=== PATIENT | female | born 1940 | race Caucasian/White ===

== ENCOUNTER 2016-07-15 11:22 | Emergency (ER) | payer OTHER, BC ==
[~2016-07-15] VITALS: Ht 167.6 cm; Wt 55.0 kg
[~2016-07-15 11:22] MED LIST: ALBU8.5H3 INH; AZIT250T94 PO; CEPH-443 PO; D-ME473S2 PO; LEVO50TA71 PO; LEVO750T25 PO; MECL25TA2 PO; NAPR-685 PO; ONDA4TAB8 PO; RANI150T9 PO; SIMV20TA PO
[2016-07-15 11:37] VITALS: Ht 167.6 cm; Wt 55.0 kg
[2016-07-15] MEDS ORDERED: morphine 2 MG INJ IV STA (11:58)
[2016-07-15] MEDS ORDERED: SOD CHLORIDE 0.9% 500 ML IV STA (11:58)
[2016-07-15] MEDS ORDERED: ONDANSETRON 4 MG INJ IV STA (11:58)
[2016-07-15] MEDS ORDERED: KETOROLAC 15 MG INJ IV STA (12:19)
[2016-07-15 12:24] LABS: ADD SCAN DIFF NO
[2016-07-15 12:31] LABS: BASOPHILS % 0.3 % (0.0-2.0); EOSINOPHILS # 0.1 10^3/ul (0.0-0.5); HEMOGLOBIN 12.7 g/dl (12.0-16.0); LYMPHOCYTES # 0.8 10^3/ul (0.8-2.9); LYMPHOCYTES % 13.6 % (15.0-51.0); MEAN CORPUSCULAR HEMOGLOBIN 31.4 pg (29.0-33.0); MEAN CORPUSCULAR HGB CONC 34.3 g/dl (32.0-37.0); MEAN CORPUSCULAR VOLUME 91.4 fl (82.0-101.0); MEAN PLATELET VOLUME 11.8 fl (7.4-10.4); MONOCYTE # 0.5 10^3/ul (0.3-0.9); MONOCYTES % 7.6 % (0.0-11.0); NEUTROPHIL # 4.5 10^3/ul (1.6-7.5); NEUTROPHILS % 76.3 % (39.0-77.0); PLATELET COUNT 127 10^3/UL (140-415); RED BLOOD COUNT 4.05 10^6/ul (4.20-5.40); RED CELL DISTRIBUTION WIDTH 14.1 % (11.5-14.5); WHITE BLOOD COUNT 5.9 10^3/ul (4.8-10.8)
[2016-07-15 12:38] LABS: ADD UMIC NO; UR BILIRUBIN (Dip) NEGATIVE (NEGATIVE); UR BLOOD (Dip) NEGATIVE (NEGATIVE); UR CLARITY CLEAR (CLEAR); UR COLOR LT. YELLOW (YELLOW); UR GLUCOSE (Dip) NEGATIVE (NEGATIVE); UR KETONES (Dip) NEGATIVE (NEGATIVE); UR LEUKOCYTE ESTERASE (Dip) NEGATIVE (NEGATIVE); UR NITRITE (Dip) NEGATIVE (NEGATIVE); UR TOTAL PROTEIN (Dip) NEGATIVE (NEGATIVE); UR UROBILINOGEN (Dip) 0.2 E.U./dL (0.1-1.0)
[2016-07-15 12:45] LABS: INR 0.96; PROTIME 12.8 Sec (12.2-14.2)
[2016-07-15 12:46] LABS: ALBUMIN 3.7 g/dl (3.3-4.9); ALBUMIN/GLOBULIN RATIO 1.32; CALCIUM 8.3 mg/dl (8.4-10.2); CREATININE 0.57 mg/dl (0.44-1.00); PARTIAL THROMBOPLASTIN TIME 30.3 Sec (25.0-35.0); TOTAL PROTEIN 6.5 g/dl (6.1-8.1)
--- NOTE | 2016-07-15 12:46 | ERD ---
ER Documentation Chief Complaint Date/Time DATE: 07/15/16 TIME: 12:44 Chief Complaint DIARRHEA AND VOMITTING SINCE LAST NIGHT HPI 76-year-old female prior history of ovarian cyst surgery who presents emergency room with abdominal pain and diarrhea that started last night. She describes 9 out of 10 cramping abdominal pain with associated loose watery stools, no fever no blood no nausea no vomiting. No chest pain or shortness of breath. ROS All systems reviewed and are negative except as per history of present illness. Medications Home Meds Reported Medications Levothyroxine Sodium* (Levoxyl*) 50 Mcg Tablet, 50 MCG PO BEFORE BREAKFAST, #30 TAB 04/20/15 Simvastatin* (Zocor*) 20 Mg Tablet, 20 MG PO QHS, #30 TAB 04/20/15 Discontinued Reported Medications Naproxen* (Naproxen*) 375 Mg Tablet, 375 MG PO BID Y for PAIN AND/OR INFLAMMATION, TAB 04/20/15 Discontinued Scripts Cephalexin* (Keflex*) 500 Mg Capsule, 500 MG PO BID for 10 Days, CAP Prov:ANAYELI BAEZA PA-C 02/29/16 Azithromycin* (Zithromax*) 250 Mg Tablet, 250 MG PO .ZPACK DIRECTED, #6 TAB TAKE 500 MG (2 TABS) THE FIRST DAY THEN 250 MG (1 TAB) DAYS 2-5 Prov:ANAYELI BAEZA PA-C 02/29/16 Dextromethorphan Hb-Promethazine Hcl* (Promethazine DM* Syrup) 473 Ml Syrup, 5 ML PO Q6 Y for COUGH, #5 ML Prov:ANAYELI BAEZA PA-C 02/29/16 Albuterol Sulfate* (Proair HFA*) 8.5 Gm Hfa.aer.ad, 2 PUFF INH Q6H Y for COUGH, #1 INHALER Prov:DIONTE JOAQUIN MD 10/15/15 Meclizine Hcl* (Antivert*) 25 Mg Tablet, 25 MG PO Q6H Y for DIZZINESS, #20 TAB Prov:DIONTE JOAQUIN MD 10/15/15 Ranitidine Hcl* (Zantac*) 150 Mg Tablet, 150 MG PO BID Y for GASTROINTESTINAL UPSET, #30 TAB Prov:RUBÉN HIDALGO 04/20/15 Ondansetron Hcl* (Zofran*) 4 Mg Tablet, 4 MG PO Q8H Y for NAUSEA AND/OR VOMITING , #30 TAB Prov:RUBÉN HIDALGO 04/20/15 Meclizine Hcl* (Antivert*) 25 Mg Tablet, 25 MG PO Q6H Y for vertigo, #20 TAB Prov:RUBÉN HIDALGO 04/20/15 Allergies Allergies: Coded Allergies: No Known Allergy (Unverified , 04/20/15) PMhx/Soc History of Surgery: Yes (thyroidectomy ) Anesthesia Reaction: No Hx Neurological Disorder: No Hx Respiratory Disorders: No Hx Cardiac Disorders: Yes (hypotension/hypertension) Hx Psychiatric Problems: No Hx Miscellaneous Medical Probl: Yes Hx Alcohol Use: No Hx Substance Use: No Hx Tobacco Use: No FmHx Family History: No diabetes Physical Exam Vitals Vital Signs Date Time Temp Pulse Resp B/P Pulse Ox O2 Delivery O2 Flow Rate FiO2 07/15/16 13:48 77 18 124/69 100 Room Air 07/15/16 12:56 71 137/68 Room Air 07/15/16 12:14 98 131/67 97 Room Air 07/15/16 11:37 98.2 81 19 119/64 96 Physical Exam General: Well developed, well nourished, no acute distress, drinking soda Head: Normocephalic, atraumatic. Eyes: Pupils equally reactive, EOM intact ENT: Moist mucous membranes Neck: Supple, no lymphadenopathy Respiratory: Lungs clear bilaterally, no distress Cardiovascular: RRR, no murmurs, rubs, or gallops Abdominal: Soft, mild diffuse tenderness without rebound or guarding : Deferred MSK: No edema, no unilateral swelling, 5/5 strength Neurologic: Alert and oriented, moving all extremities, normal speech, no focal weakness, no cerebellar signs Skin: No rash Psych: Normal mood Result Diagram: 07/15/16 1210 07/15/16 1210 Results 24 hrs Laboratory Tests Test 07/15/16 12:10 White Blood Count 5.910^3/ul Red Blood Count 4.0510^6/ul Hemoglobin 12.7g/dl Hematocrit 37.0% Mean Corpuscular Volume 91.4fl Mean Corpuscular Hemoglobin 31.4pg Mean Corpuscular Hemoglobin Concent 34.3g/dl Red Cell Distribution Width 14.1% Platelet Count 86386^3/UL Mean Platelet Volume 11.8fl Neutrophils % 76.3% Lymphocytes % 13.6% Monocytes % 7.6% Eosinophils % 2.0% Basophils % 0.3% Nucleated Red Blood Cells % 0.0/100WBC Neutrophils # 4.510^3/ul Lymphocytes # 0.810^3/ul Monocytes # 0.510^3/ul Eosinophils # 0.110^3/ul Basophils # 0.010^3/ul Nucleated Red Blood Cells # 0.010^3/ul Prothrombin Time 12.8Sec Prothrombin Time Ratio 1.0 INR International Normalized Ratio 0.96 Activated Partial Thromboplast Time 30.3Sec Urine Color LT. YELLOW Urine Clarity CLEAR Urine pH 6.0 Urine Specific [place] 1.015 Urine Ketones NEGATIVE Urine Nitrite NEGATIVE Urine Bilirubin NEGATIVE Urine Urobilinogen 0.2 E.U./dL Urine Leukocyte Esterase NEGATIVE Urine Hemoglobin NEGATIVE Urine Glucose NEGATIVE% Urine Total Protein NEGATIVE Sodium Level 134mmol/L Potassium Level 4.0mmol/L Chloride Level 105mmol/L Carbon Dioxide Level 22mmol/L Anion Gap 11 Blood Urea Nitrogen 15mg/dl Creatinine 0.57mg/dl Glucose Level 104mg/dl Calcium Level 8.3mg/dl Total Bilirubin 0.0mg/dl Direct Bilirubin 0.00mg/dl Indirect Bilirubin 0.0mg/dl Aspartate Amino Transf (AST/SGOT) 67IU/L Alanine Aminotransferase (ALT/SGPT) 72IU/L Alkaline Phosphatase 94IU/L Total Protein 6.5g/dl Albumin 3.7g/dl Globulin 2.80g/dl Albumin/Globulin Ratio 1.32 Lipase 35U/L Current Medications Medications (Trade) Dose Ordered Sig/Myranda Route PRN Reason Start Time Stop Time Status Last Admin Dose Admin Sodium Chloride (NS) 500 ml @ 500 mls/hr Q1H STAT IV 07/15/16 11:58 07/15/16 12:57 DC 07/15/16 12:20 Morphine Sulfate (morphine) 2 mg ONCE STAT IV 07/15/16 11:58 07/15/16 11:59 DC Ondansetron HCl (Zofran Inj) 4 mg ONCE STAT IV 07/15/16 11:58 07/15/16 11:59 DC 07/15/16 12:22 Ketorolac Tromethamine (Toradol) 15 mg ONCE STAT IV 07/15/16 12:19 07/15/16 12:20 DC 07/15/16 12:25 Procedures/MDM EKG, MONITORS, & DIAGNOSTIC IMAGING: CT abdomen and pelvis: IMPRESSION: 1. Subtle areas of increased soft tissue density adjacent to the anterior sacrum which are nonspecific and may represent focal areas of inflammatory change. Consider MRI of the pelvis with contrast if symptoms do not resolve. 2. Evidence of old granulomatous disease. 3. 4 mm left lingular pulmonary nodule. Recommend 6-month to 1-year follow-up. 4. Fatty infiltration of the liver. 5. Atherosclerotic vascular disease. RPTAT: KK LAB INTERPRETATION: No leukocytosis MEDICAL DECISION MAKING: The patient presents with a diarrheal illness. Though the patient is describing 9 out of 10 pain, the patient is resting comfortably, sitting in a chair and drinking a soda. However, given the patient states she is at increased risk for acute intra-abdominal process such as colitis, bowel obstruction, acute appendicitis among others. For this reason laboratory testing and CT imaging would be appropriate. ER COURSE: The patient refused morphine. Toradol provided. Laboratory analysis and diagnostic imaging is unrevealing. This is most likely viral diarrheal process. No evidence of ischemic colitis. The patient continues to be extremely well-appearing. Outpatient management appropriate. I kept the patient and/or family informed of laboratory and diagnostic imaging results throughout the emergency room course. DISPOSITION PLAN: We discussed follow up with the patient's primary care doctor within 24 to 48 hours as needed. We also discussed return to the emergency room for worsening symptoms or worsening condition. Outpatient referral: [None required] Discharge Medications: Bentyl Departure Diagnosis: Primary Impression: Diarrhea Diarrhea type: unspecified type Qualified Code: R19.7 - Diarrhea, unspecified type Condition: ROD Bhakta MD Jul 15, 2016 12:46
--- NOTE | 2016-07-15 14:04 | RADRPT ---
PROCEDURE: CT Abdomen and Pelvis without contrast. CLINICAL INDICATION: Abdominal pain TECHNIQUE: CT scan of the abdomen and pelvis without contrast was performed on a multi-slice CT [facility] without intravenous contrast. Coronal and sagittal reformatted images were obtained from the axial source images. Images were reviewed on a high-resolution PACS workstation. One or more of the following does reduction techniques were used: Automated exposure control; adjustment of the mA an d/or kV according to patient size; use of the aorta of reconstruction technique. The total exam CTD I equals 13.34 mGy and the total exam DLP equals 783.14 mGy-cm. COMPARISON: None available. FINDINGS: There are a few calcified granuloma in the left posterior lung base. There is a 4 mm nodule in the left lingula. Lung bases are otherwise grossly clear.. Heart size is normal, and there is no evide nce of pericardial thickening or effusion. Several calcified granulomata are seen the region of the bilateral erin. Is diffuse decreased attenuation of the hepatic parenchyma consistent with fatty infiltration. The liver, spleen, and pancreas are otherwise normal given the limitations of a noncontrast CT examinati on. The gallbladder is normal. The adrenal glands are normal. The kidneys without renal calculus or hydronephrosis. The aorta is of normal caliber. Atherosclerotic calcifications are present. There is no retroperito silverio lymph node enlargment. There is no evidence of large or small bowel obstruction. The appendix is not clearly identified, h owever there is no secondary evidence of acute appendicitis. No free fluid or fluid collections ar e identified. The uterus is present. There are postoperative changes seen in the left adnexa. There are subtle rounded areas of increased soft tissue density in the posterior pelvic fat (2.0 x 2.0 cm on the righ t and 2.9 x 2.0 on the left) which are inseparable from the anterior aspect of the second and third sacral bodies. This finding is nonspecific and may represent a small amount of nonspecific focal in flammatory change. No other areas of inflammation are seen. There is no pelvic free fluid. The bl adder is within normal limits. The inguinal regions are unremarkable. There are moderate degenerative change of the spine. There is a 6 mm sclerotic focus in the left S3 vertebral body. The bones are otherwise intact. IMPRESSION: 1. Subtle areas of increased soft tissue density adjacent to the anterior sacrum which are nonspeci fic and may represent focal areas of inflammatory change. Consider MRI of the pelvis with contrast if symptoms do not resolve. 2. Evidence of old granulomatous disease. 3. 4 mm left lingular pulmonary nodule. Recommend 6-month to 1-year follow-up. 4. Fatty infiltration of the liver. 5. Atherosclerotic vascular disease. RPTAT: KK .Stanley Diaz MD, MD Date Time Electronically viewed and signed by .Stanley Diaz MD, on 07/15/2016 14:03 .B/
[2016-07-15] MEDS ORDERED: DICY10CA60 PO (14:32)
[2016-07-15 14:52] VITALS: BP 132/79; PULSE 73; RESP 18
== END 2016-07-15 14:59 | disposition home or self-care (01) ==
LOC: E/R 11:22
DX: R19.7 Diarrhea, unspecified (principal); R11.10 Vomiting, unspecified; I10 Essential (primary) hypertension; E03.9 Hypothyroidism, unspecified; R10.9 Unspecified abdominal pain
CPT/HCPCS: 36415; 74176; 80053; 81003; 83690; 85025; 85610; 85730; 96374; 96375; 99285; J1885; J2405; J7040; J2270

== ENCOUNTER 2016-07-17 12:14 | Emergency (ER) | payer OTHER, BC ==
[~2016-07-17] VITALS: Ht 157.5 cm; Wt 74.5 kg
[~2016-07-17 12:14] MED LIST changes: -ALBU8.5H3 INH; -AZIT250T94 PO; -CEPH-443 PO; -D-ME473S2 PO; +DICY10CA60 PO; -LEVO750T25 PO; -MECL25TA2 PO; -NAPR-685 PO; -ONDA4TAB8 PO; -RANI150T9 PO
[2016-07-17 12:18] VITALS: Ht 157.5 cm; Wt 74.5 kg
--- NOTE | 2016-07-17 13:28 | ERA ---
ER Documentation Chief Complaint Date/Time DATE: 07/17/16 TIME: 13:27 Chief Complaint MID ABDOMINAL PAIN,NAUSEA,DIARRHEA X3DAYS HPI The patient is a 76-year-old female, presenting to the ER because of diarrhea for 3 days. She was seen in the ER 2 days ago and had extensive workup, including a negative CT scan of the abdomen and pelvic. She is very unhappy because she had to wait for an hour before being seen. She denies fever, chills , neck pain, chest pain, dyspnea, complains of diffuse abdominal discomfort, c/ o nausea but no vomiting. She denies any hematemesis or hematochezia or dysuria. He was discharged with Bentyl Past medical history: Hypothyroidism, dyslipidemia, hypertension Past surgical history: Thyroidectomy ROS All systems reviewed and are negative except as per history of present illness. Medications Home Meds Active Scripts Ondansetron (Ondansetron Odt) 4 Mg Tab.rapdis, 4 MG PO Q6H Y for NAUSEA AND/OR VOMITING, #10 TAB Prov:CHARLOTTE MILLER MD 07/17/16 Loperamide Hcl* (Imodium*) 2 Mg Capsule, 2 MG PO .AFTER EA LOOSE BM Y for DIARRHEA, #10 TAB Prov:CHARLOTTE MILLER MD 07/17/16 Ciprofloxacin Hcl* (Ciprofloxacin Hcl*) 500 Mg Tablet, 500 MG PO BID for 3 Days , TAB Prov:CHARLOTTE MILLER MD 07/17/16 Dicyclomine Hcl* (Bentyl*) 10 Mg Capsule, 10 MG PO QID Y for abdominal cramping , #30 CAP Prov:ROD SOLOMON MD 07/15/16 Reported Medications Levothyroxine Sodium* (Levoxyl*) 50 Mcg Tablet, 50 MCG PO BEFORE BREAKFAST, #30 TAB 04/20/15 Simvastatin* (Zocor*) 20 Mg Tablet, 20 MG PO QHS, #30 TAB 04/20/15 Discontinued Reported Medications Naproxen* (Naproxen*) 375 Mg Tablet, 375 MG PO BID Y for PAIN AND/OR INFLAMMATION, TAB 04/20/15 Discontinued Scripts Cephalexin* (Keflex*) 500 Mg Capsule, 500 MG PO BID for 10 Days, CAP Prov:ANAYELI BAEZA PA-C 02/29/16 Azithromycin* (Zithromax*) 250 Mg Tablet, 250 MG PO .ZPACK DIRECTED, #6 TAB TAKE 500 MG (2 TABS) THE FIRST DAY THEN 250 MG (1 TAB) DAYS 2-5 Prov:ANAYELI BAEZA PA-C 02/29/16 Dextromethorphan Hb-Promethazine Hcl* (Promethazine DM* Syrup) 473 Ml Syrup, 5 ML PO Q6 Y for COUGH, #5 ML Prov:ANAYELI BAEZA PA-C 02/29/16 Albuterol Sulfate* (Proair HFA*) 8.5 Gm Hfa.aer.ad, 2 PUFF INH Q6H Y for COUGH, #1 INHALER Prov:DIONTE JOAQUIN MD 10/15/15 Meclizine Hcl* (Antivert*) 25 Mg Tablet, 25 MG PO Q6H Y for DIZZINESS, #20 TAB Prov:DIONTE JOAQUIN MD 10/15/15 Ranitidine Hcl* (Zantac*) 150 Mg Tablet, 150 MG PO BID Y for GASTROINTESTINAL UPSET, #30 TAB Prov:RUBÉN HIDALGO 04/20/15 Ondansetron Hcl* (Zofran*) 4 Mg Tablet, 4 MG PO Q8H Y for NAUSEA AND/OR VOMITING , #30 TAB Prov:RUBÉN HIDALGO 04/20/15 Meclizine Hcl* (Antivert*) 25 Mg Tablet, 25 MG PO Q6H Y for vertigo, #20 TAB Prov:RUBÉN HIDALGO 04/20/15 Allergies Allergies: Coded Allergies: No Known Allergy (Unverified , 04/20/15) PMhx/Soc History of Surgery: Yes (thyroidectomy ) Anesthesia Reaction: No Hx Neurological Disorder: No Hx Respiratory Disorders: No Hx Cardiac Disorders: Yes (hypotension/hypertension) Hx Psychiatric Problems: No Hx Miscellaneous Medical Probl: Yes Hx Alcohol Use: No Hx Substance Use: No Hx Tobacco Use: No Physical Exam Vitals Vital Signs Date Time Temp Pulse Resp B/P Pulse Ox O2 Delivery O2 Flow Rate FiO2 07/17/16 12:18 98.1 75 18 144/66 98 Physical Exam Const: No acute distress. Head: Atraumatic. Eyes: Normal Conjunctiva. ENT: Normal External Ears, Nose and Mouth. Neck: Full range of motion. No meningismus. Resp: Clear to auscultation bilaterally. Cardio: Regular rate and rhythm, no murmurs. Abd: Soft, non distended, normal bowel sounds, vague and diffuse abdominal discomfort, no rigidity, rebound, CVA tenderness Skin: No petechiae or rashes. Back: No midline or flank tenderness. Ext: No cyanosis, or edema. Neur: Awake and alert. No focal deficit Psych: Normal Mood and Affect. Procedures/MDM MEDICAL MAKING DECISION: The patient is a 76-year-old female, presenting with acute diarrhea of unclear etiology. She will be treated empirically with Cipro for 3 days. The differential diagnoses considered include but are not limited to gastroenteritis, colitis, cholelithiasis, cholecystitis, cystitis, pancreatitis, hepatitis, gastritis, peptic ulcer disease, gastric ulcer, appendicitis, diverticulitis, cholangitis, choledocholithiasis, partial small bowel obstruction. Departure Diagnosis: Primary Impression: Diarrhea Comments She was discharged with Cipro, Imodium, Zofran ODT I discussed the findings with the patient. I advised the patient to follow-up with the primary physician in about 1-2 days, sooner if needed and return if any concern. CHARLOTTE MILLER MD Jul 17, 2016 13:28
[2016-07-17] MEDS ORDERED: CIPR500T4 PO (13:39)
[2016-07-17] MEDS ORDERED: LOPE2CAP PO (13:39)
[2016-07-17] MEDS ORDERED: ONDA4TAB14 PO (13:40)
== END 2016-07-17 13:40 | disposition home or self-care (01) ==
LOC: E/R 12:14
DX: R19.7 Diarrhea, unspecified (principal); R11.0 Nausea
CPT/HCPCS: 99283

== ENCOUNTER 2016-09-11 14:55 | Emergency (ER) | payer BC, OTHER ==
[~2016-09-11] VITALS: Ht 162.6 cm; Wt 76.0 kg
[~2016-09-11 14:55] MED LIST changes: +CIPR500T4 PO; +LOPE2CAP PO; +ONDA4TAB14 PO
[2016-09-11 14:57] VITALS: Ht 162.6 cm; Wt 76.0 kg
== END 2016-09-11 19:59 | disposition left against medical advice (07) ==
LOC: FTE 14:55
DX: Z53.21 Procedure and treatment not carried out due to patient leaving prior to being seen by health care provider (principal)

== ENCOUNTER 2016-09-25 15:02 | Emergency (ER) | payer OTHER, BC ==
[~2016-09-25] VITALS: Ht 157.5 cm; Wt 79.0 kg
[2016-09-25 15:05] VITALS: Ht 157.5 cm; Wt 79.0 kg
[2016-09-25] MEDS ORDERED: HYDROCODONE/APAP (5/325) TAB PO ONE (16:30)
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
[2016-09-25] MEDS ORDERED: TRAM50TA2 PO (17:50)
[2016-09-25] MEDS ORDERED: ORPH100T PO (17:51)
[2016-09-25] MEDS ORDERED: NAPR-260 PO (17:52)
== END 2016-09-25 18:20 | disposition home or self-care (01) ==
LOC: FTE 15:02
DX: M54.5 Low back pain (principal); I10 Essential (primary) hypertension
CPT/HCPCS: 72131

== ENCOUNTER 2017-01-13 13:20 | Emergency (ER) | payer OTHER, BC ==
[~2017-01-13] VITALS: Ht 152.4 cm; Wt 74.0 kg
[~2017-01-13 13:20] MED LIST changes: +NAPR-260 PO; +ORPH100T PO; +TRAM50TA2 PO
[2017-01-13 13:27] VITALS: Ht 152.4 cm; Wt 74.0 kg
[2017-01-13] MEDS ORDERED: ACETAMINOPHEN 325 MG TAB PO ONE (15:00)
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
--- NOTE | 2017-01-13 16:25 | RADRPT ---
PROCEDURE: CT Cervical Spine without intravenous contrast CLINICAL INDICATION: Pain after fall onto back. COMPARISON: None available. TECHNIQUE: Axial noncontrast CT images of the cervical spine with coronal and sagittal reformats. DOSE ESTIMATE: CTDI vol = 22 mGy. DLP = 453 mGy-cm. One or more of the following dose reduction te chniques were used: automated exposure control, adjustment of the mA and/or kV according to patient size, or use of iterative reconstruction. FINDINGS: Alignment: Normal. Vertebrae: No fracture, vertebral body height loss, or destructive bone lesion. Discs: Disc height loss between C4-C5 and C6-C7. Degenerative change: C2-C3 : No uncovertebral or facet joint arthropathy. No central canal or foraminal narrowing. C3-C4 : 2 mm disc osteophyte complex results in mild central canal narrowing. No foraminal narrowing . C4-C5 : Moderate right uncovertebral joint arthropathy results in moderate right foraminal narrowing . No central canal or left foraminal narrowing. C5-C6 : Mild anterior endplate spurring. 3 mm disc osteophyte complex results in mild central canal narrowing. Moderate bilateral uncovertebral joint arthropathy results in moderate bilateral foramina l narrowing. C6-C7 : 3 mm disc osteophyte complex with mild left facet arthropathy. Mild central canal narrowing and severe left foraminal narrowing. C7-T1 : No uncovertebral or facet joint arthropathy. No central canal or foraminal narrowing. Paraspinal soft tissues: Normal. Visualized posterior fossa: Normal. Visualized neck: Right thyroid lobectomy. 9 mm heterogeneous nodule in the left thyroid lobe. Arter ial calcifications. Visualized lung apices: Normal. Additional comment: None. IMPRESSION: 1. No acute fracture or subluxation. 2. Mild multilevel degenerative changes, most notable in the lower cervical spine. RPTAT: PP Physician Jorge Luis Date Time Electronically viewed and signed by Physician Jorge Luis on 01/13/2017 16:25 LG/
--- NOTE | 2017-01-13 16:31 | RADRPT ---
PROCEDURE: CT Thoracic Spine without intravenous contrast CLINICAL INDICATION: Back pain after a fall onto back. COMPARISON: None relevant available. TECHNIQUE: Axial CT images of the thoracic spine with coronal and sagittal reformats. DOSE: CTDI vol = 16 mGy. DLP = 654 mGy-cm. One or more of the following dose reduction techniques were used: automated exposure control, adjustment of the mA and/or kV according to patient size, or use of iterative reconstruction. FINDINGS: Alignment: Normal. Vertebrae: No acute fracture, height loss, or suspicious bone lesion. Superior T12 endplate Schmorl' s node. Moderate right T9-T10 endplate spurring. Discs: Disc desiccation with vacuum phenomenon at T10-T11, T11-T12, L1-L2, and L2-L3. Moderate degen erative endplate spurring and sclerosis at 1 L2 and L2-L3. Degenerative change: No significant central canal or foraminal narrowing Para-vertebral soft tissues: Normal. Visualized chest and abdomen: Calcified hilar and mediastinal lymph nodes, sequela of remote granulo matous disease. Additional comment: None. IMPRESSION: No acute fracture or subluxation. RPTAT: PP Physician Jorge Luis Date Time Electronically viewed and signed by Physician Jorge Luis on 01/13/2017 16:30 LG/
--- NOTE | 2017-01-13 16:48 | RADRPT ---
PROCEDURE: CT lumbar spine without contrast CLINICAL INDICATION: Back pain status post fall TECHNIQUE: CT scan of the lumbar spine was performed on a high-resolution multi-detector CT scanne r. No IV contrast was administered. Coronal and sagittal reformatted images were obtained from the axial source images. Images were reviewed on a high-resolution PACS workstation. Exam CTDI = 16.89 mGy and the DLP = 401.53 mGy-cm. One or more of the following dose reduction techniques were used: Automated exposure control. Adjustment of the mA and/or kV according to patient size. Use of iterative reconstruction technique. COMPARISON: CT abdomen and pelvis 07/15/2016 FINDINGS: There is mild sigmoid scoliosis of the lumbar spine with dominant levoconvex curvature centered at L 4-L5. Lumbar lordosis is relatively preserved. There is degenerative retrolisthesis of L2 on L3, L3 on L4 and L4 on L5. There is no acute fracture or traumatic malalignment. No mass, hematoma, or oth er soft tissue abnormality is seen. L1-L2: There is mild disc height loss with discogenic endplate changes anteriorly and disc vacuum ph enomena. Mild disc bulge, mild facet arthropathy and ligamentum flavum thickening are seen at this l evel. The central canal and bilateral neural foramina are adequately patent. L2-L3: There is severe left lateral disc height loss with discogenic endplate changes and disc vacu um phenomena. Disc osteophyte complex eccentric to the left, mild facet arthropathy and ligamentum f lavum thickening are seen at this level. There is mild to moderate left neural foraminal stenosis. T he central canal and right neural foramen are adequately patent. L3-L4: There is mild disc height loss with disc vacuum phenomena. Disc bulge with prominent left fo raminal component, mild to moderate facet arthropathy and ligamentum flavum thickening are seen at t his level. There is moderate central canal and left neural foraminal stenosis. There is mild to mode rate right neural foraminal stenosis. L4-L5: There is severe right lateral disc height loss with discogenic endplate changes and disc vacu um phenomena. Disc osteophyte complex eccentric to the right, moderate to severe right and mild to m oderate left facet arthropathy and ligamentum flavum thickening are seen at this level. There is mod erate central canal stenosis. There is severe right lateral recess stenosis and moderate to severe r ight neural foraminal stenosis. There is mild left neural foraminal stenosis. L5-S1: The disc height is maintained. Disc osteophyte complex, moderate facet arthropathy with liga mentum flavum thickening are seen at this level. There is moderate bilateral neural foraminal stenos is. The central canal remains adequately patent. IMPRESSION: 1. No acute fracture or traumatic malalignment. 2. Mild sigmoid scoliosis of the lumbar spine with multilevel moderate degenerative changes more marin dent at L2-L3, L3-L4 and L4-L5, as described above. RPTAT: BB .Jaleesa Thomas MD, MD Date Time Electronically viewed and signed by .Jaleesa Thomas MD, on 01/13/2017 16:48 .O/
[2017-01-13] MEDS ORDERED: ACET325T33 PO (17:01)
--- NOTE | 2017-01-14 19:12 | ERD ---
ER Documentation Chief Complaint Chief Complaint BECERRA S/P SLIP ON STAIRS HIT HEAD, DENIES KO, DROVE SELF HERE HPI Patient is a 76-year-old female presenting to the emergency department with complaints of occipital head pain, and neck, and back pain after a fall backwards earlier today. The patient states she did not realize the floor was slippery and she slipped falling backwards onto the back of her head and her back. She states she notices slight blurry vision which is intermittent. She denies any loss of consciousness. Symptoms are constant. She denies hip pain, nausea, vomiting, dizziness, or other symptoms at this time. ROS All systems reviewed and are negative except as per history of present illness. Medications Home Meds Active Scripts Acetaminophen* (Tylenol*) 325 Mg Tablet, 2 TAB PO Q6 Y for PAIN AND OR ELEVATED TEMP, #20 TAB Prov:LEFTY BELLO PA-C 01/13/17 Naproxen* (Naprosyn*) 500 Mg Tablet, 500 MG PO BID Y for PAIN AND/OR INFLAMMATION, #30 TAB Prov:PATRICIO BRAVO 09/25/16 Orphenadrine Citrate (Norflex) 100 Mg Tablet.sa, 100 MG PO BID for 7 Days, TAB.SA Prov:PATRICIO BRAVO 09/25/16 Tramadol HCl (Tramadol HCl) 50 Mg Tablet, 50 MG PO Q4 Y for PAIN, #20 TAB Prov:PATRICIO BRAVO 09/25/16 Ondansetron (Ondansetron Odt) 4 Mg Tab.rapdis, 4 MG PO Q6H Y for NAUSEA AND/OR VOMITING, #10 TAB Prov:CHARLOTTE MILLER MD 07/17/16 Loperamide Hcl* (Imodium*) 2 Mg Capsule, 2 MG PO .AFTER EA LOOSE BM Y for DIARRHEA, #10 TAB Prov:CHARLOTTE MILLER MD 07/17/16 Ciprofloxacin Hcl* (Ciprofloxacin Hcl*) 500 Mg Tablet, 500 MG PO BID for 3 Days , TAB Prov:CHARLOTTE MILLER MD 07/17/16 Dicyclomine Hcl* (Bentyl*) 10 Mg Capsule, 10 MG PO QID Y for abdominal cramping , #30 CAP Prov:ROD SOLOMON MD 07/15/16 Reported Medications Levothyroxine Sodium* (Levoxyl*) 50 Mcg Tablet, 50 MCG PO BEFORE BREAKFAST, #30 TAB 04/20/15 Simvastatin* (Zocor*) 20 Mg Tablet, 20 MG PO QHS, #30 TAB 04/20/15 Allergies Allergies: Coded Allergies: No Known Allergy (Unverified , 04/20/15) PMhx/Soc History of Surgery: Yes (thyroidectomy ) Anesthesia Reaction: No Hx Neurological Disorder: No Hx Respiratory Disorders: No Hx Cardiac Disorders: Yes (hypotension/hypertension) Hx Psychiatric Problems: No Hx Miscellaneous Medical Probl: Yes Hx Alcohol Use: Yes (occas) Hx Substance Use: No Hx Tobacco Use: No Smoking Status: Never smoker Physical Exam Vitals Vital Signs Date Time Temp Pulse Resp B/P Pulse Ox O2 Delivery O2 Flow Rate FiO2 01/13/17 13:27 98.1 71 20 114/56 97 Physical Exam Const: Nontoxic, well-appearing female in no acute distress. Head: Atraumatic Eyes: Normal Conjunctiva ENT: Normal External Ears, Nose and Mouth. Neck: Full range of motion..~ No meningismus. Resp: Clear to auscultation bilaterally Cardio: Regular rate and rhythm, no murmurs Skin: No petechiae or rashes Back: No midline or flank tenderness. There is some mild tenderness palpation of the paraspinal muscles of the entire back. Ext: No cyanosis, or edema Neur: Awake and alert Psych: Normal Mood and Affect Results 24 hrs Current Medications Medications (Trade) Dose Ordered Sig/Myranda Route PRN Reason Start Time Stop Time Status Last Admin Dose Admin Acetaminophen (Tylenol Tab) 650 mg ONCE ONCE PO 01/13/17 15:00 01/13/17 15:01 DC 01/13/17 15:04 Procedures/MDM Patient is a 76-year-old female presenting to the emergency department with complaints of occipital head pain and back pain after fall earlier today. Physical examination is essentially unremarkable. The patient was given pain medication in the department and she is feeling improved prior to discharge. CT scans of the head and back and neck showed no acute findings. No evidence to suggest life-threatening pathology in the emergency department. She stable for discharge with prescription for pain medication. Pt/family in agreement with discharge plan/diagnosis. Pt/family advised to return immediately with any new or worsening symptoms. Follow-up with primary care physician within the next 1-2 days. Disclaimer: Inadvertent spelling and grammatical errors are likely due to EHR/ dictation software use and do not reflect on the overall quality of patient care. Also, please note that the electronic time recorded on this note does not necessarily reflect the actual time of the patient encounter. PROCEDURE: CT head without intravenous contrast CLINICAL INDICATION: Headache after a fall. COMPARISON: CT 04/20/2015. TECHNIQUE: Axial CT images from skull base to vertex with coronal and sagittal reformats. DOSE: The estimated administered radiation dose was CTDI vol = 44 mGy. DLP = 720 mGy-cm. One or more of the following dose reduction techniques were used: automated exposure control, adjustment of the mA and/or kV according to patient size, or use of iterative reconstruction. FINDINGS: Parenchyma: No acute hemorrhage, large territorial infarction, or mass. Focal calcification in the left temporal lobe, a non-specific finding often associated with remote granulomatous diseases such as neurocysticercosis. Ventricles: Mild generalized volume with proportionate ex vacuo ventricular dilation. Extra-axial spaces: No herniation or midline shift. Paranasal sinuses: Clear. Mastoids and middle ears: Clear. Visualized orbits: Normal. Vessels: No calcified atherosclerotic arterial plaque identified. Bones: Mild hyperostosis frontalis interna. Extracranial soft tissues: Normal. Additional comment: None. IMPRESSION: 1. No acute intracranial abnormality. 2. Mild generalized cerebral volume loss. PROCEDURE: CT Cervical Spine without intravenous contrast CLINICAL INDICATION: Pain after fall onto back. COMPARISON: None available. TECHNIQUE: Axial noncontrast CT images of the cervical spine with coronal and sagittal reformats. DOSE ESTIMATE: CTDI vol = 22 mGy. DLP = 453 mGy-cm. One or more of the following dose reduction techniques were used: automated exposure control, adjustment of the mA and/or kV according to patient size, or use of iterative reconstruction. FINDINGS: Alignment: Normal. Vertebrae: No fracture, vertebral body height loss, or destructive bone lesion. Discs: Disc height loss between C4-C5 and C6-C7. Degenerative change: C2-C3 : No uncovertebral or facet joint arthropathy. No central canal or foraminal narrowing. C3-C4 : 2 mm disc osteophyte complex results in mild central canal narrowing. No foraminal narrowing. C4-C5 : Moderate right uncovertebral joint arthropathy results in moderate right foraminal narrowing. No central canal or left foraminal narrowing. C5-C6 : Mild anterior endplate spurring. 3 mm disc osteophyte complex results in mild central canal narrowing. Moderate bilateral uncovertebral joint arthropathy results in moderate bilateral foraminal narrowing. C6-C7 : 3 mm disc osteophyte complex with mild left facet arthropathy. Mild central canal narrowing and severe left foraminal narrowing. C7-T1 : No uncovertebral or facet joint arthropathy. No central canal or foraminal narrowing. Paraspinal soft tissues: Normal. Visualized posterior fossa: Normal. Visualized neck: Right thyroid lobectomy. 9 mm heterogeneous nodule in the left thyroid lobe. Arterial calcifications. Visualized lung apices: Normal. Additional comment: None. IMPRESSION: 1. No acute fracture or subluxation. 2. Mild multilevel degenerative changes, most notable in the lower cervical spine. RPTAT: PP Physician Jorge Luis Date Time Electronically viewed and signed by Physician Jorge Luis on 01/13/2017 16: 25 PROCEDURE: CT lumbar spine without contrast CLINICAL INDICATION: Back pain status post fall TECHNIQUE: CT scan of the lumbar spine was performed on a high-resolution multi-detector CT scanner. No IV contrast was administered. Coronal and sagittal reformatted images were obtained from the axial source images. Images were reviewed on a high-resolution PACS workstation. Exam CTDI = 16.89 mGy and the DLP = 401.53 mGy-cm. One or more of the following dose reduction techniques were used: Automated exposure control. Adjustment of the mA and/or kV according to patient size. Use of iterative reconstruction technique. COMPARISON: CT abdomen and pelvis 07/15/2016 FINDINGS: There is mild sigmoid scoliosis of the lumbar spine with dominant levoconvex curvature centered at L4-L5. Lumbar lordosis is relatively preserved. There is degenerative retrolisthesis of L2 on L3, L3 on L4 and L4 on L5. There is no acute fracture or traumatic malalignment. No mass, hematoma, or other soft tissue abnormality is seen. L1-L2: There is mild disc height loss with discogenic endplate changes anteriorly and disc vacuum phenomena. Mild disc bulge, mild facet arthropathy and ligamentum flavum thickening are seen at this level. The central canal and bilateral neural foramina are adequately patent. L2-L3: There is severe left lateral disc height loss with discogenic endplate changes and disc vacuum phenomena. Disc osteophyte complex eccentric to the left , mild facet arthropathy and ligamentum flavum thickening are seen at this level. There is mild to moderate left neural foraminal stenosis. The central canal and right neural foramen are adequately patent. L3-L4: There is mild disc height loss with disc vacuum phenomena. Disc bulge with prominent left foraminal component, mild to moderate facet arthropathy and ligamentum flavum thickening are seen at this level. There is moderate central canal and left neural foraminal stenosis. There is mild to moderate right neural foraminal stenosis. L4-L5: There is severe right lateral disc height loss with discogenic endplate changes and disc vacuum phenomena. Disc osteophyte complex eccentric to the right, moderate to severe right and mild to moderate left facet arthropathy and ligamentum flavum thickening are seen at this level. There is moderate central canal stenosis. There is severe right lateral recess stenosis and moderate to severe right neural foraminal stenosis. There is mild left neural foraminal stenosis. L5-S1: The disc height is maintained. Disc osteophyte complex, moderate facet arthropathy with ligamentum flavum thickening are seen at this level. There is moderate bilateral neural foraminal stenosis. The central canal remains adequately patent. IMPRESSION: 1. No acute fracture or traumatic malalignment. 2. Mild sigmoid scoliosis of the lumbar spine with multilevel moderate degenerative changes more evident at L2-L3, L3-L4 and L4-L5, as described above. RPTAT: BB .Jaleesa Thomas MD, Date Time Electronically viewed and signed by .Jaleesa Thomas MD, on 01/13/2017 16:48 PROCEDURE: CT Thoracic Spine without intravenous contrast CLINICAL INDICATION: Back pain after a fall onto back. COMPARISON: None relevant available. TECHNIQUE: Axial CT images of the thoracic spine with coronal and sagittal reformats. DOSE: CTDI vol = 16 mGy. DLP = 654 mGy-cm. One or more of the following dose reduction techniques were used: automated exposure control, adjustment of the mA and/or kV according to patient size, or use of iterative reconstruction. FINDINGS: Alignment: Normal. Vertebrae: No acute fracture, height loss, or suspicious bone lesion. Superior T12 endplate Schmorl's node. Moderate right T9-T10 endplate spurring. Discs: Disc desiccation with vacuum phenomenon at T10-T11, T11-T12, L1-L2, and L2-L3. Moderate degenerative endplate spurring and sclerosis at 1 L2 and L2-L3. Degenerative change: No significant central canal or foraminal narrowing Para-vertebral soft tissues: Normal. Visualized chest and abdomen: Calcified hilar and mediastinal lymph nodes, sequela of remote granulomatous disease. Additional comment: None. IMPRESSION: No acute fracture or subluxation. RPTAT: PP Physician Jorge Luis Date Time Electronically viewed and signed by Physician Jorge Luis on 01/13/2017 16: 30 Departure Diagnosis: Primary Impression: Fall with no significant injury Encounter type: initial encounter Qualified Code: W19.XXXA - Fall with no significant injury, initial encounter Condition: Fair Patient Instructions: Fall Prevention Referrals: ALLY OBRIEN (PCP) Additional Instructions: No mas mejor en 2-3 orta, regresar. Mas peor en 24 horas, regresear rapidamente. Ir a doctor primario en 1-2 orta. Usar instrucciones cuando nicki medicamento. LEFTY BELLO PA-C Jan 14, 2017 19:12
== END 2017-01-13 17:23 | disposition home or self-care (01) ==
LOC: FTE 13:20
DX: R51 Headache (principal); M54.2 Cervicalgia; M54.9 Dorsalgia, unspecified
CPT/HCPCS: 70450; 72125; 72128; 72131

== ENCOUNTER 2017-09-05 15:59 | Emergency (ER) | END 2017-09-05 17:25 | disposition home or self-care (01) ==

== ENCOUNTER 2017-10-22 12:38 | Emergency (ER) | END 2017-10-22 15:05 | disposition home or self-care (01) ==

== ENCOUNTER 2017-12-13 17:29 | Emergency (ER) | END 2017-12-13 18:56 | disposition home or self-care (01) ==

== ENCOUNTER 2018-02-14 13:28 | Emergency (ER) | END 2018-02-14 14:52 | disposition home or self-care (01) ==

== ENCOUNTER 2018-02-22 13:33 | Emergency (ER) | END 2018-02-22 15:24 | disposition home or self-care (01) ==

== ENCOUNTER 2018-06-18 14:09 | Emergency (ER) | payer BC, OTHER ==
[~2018-06-18] VITALS: Ht 167.6 cm; Wt 72.5 kg
[~2018-06-18 14:09] MED LIST changes: +ACET325T33 PO; +ACET500C5 PO; +AZIT250T PO; +BENZ200C68 PO; +D-ME118S24 PO; +DICY10CA40 PO; -DICY10CA60 PO; +FLUT9.9S NASAL; +GUAI-111 PO; +HC30CR25 TOP; +IBUP-1561 PO; +LORA10CA PO; -NAPR-260 PO; +NAPR-985 PO; +SODI30SP2 NS
[2018-06-18 14:21] VITALS: Ht 167.6 cm; Wt 72.5 kg
[2018-06-18] MEDS ORDERED: KETOROLAC 15 MG INJ IM STA (15:54)
[2018-06-18] MEDS ORDERED: IBUP-1542 PO (15:57)
[2018-06-18 16:06] VITALS: BP 134/66; PULSE 68; RESP 19
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
== END 2018-06-18 16:07 | disposition home or self-care (01) ==
LOC: E/R 14:09
DX: M54.5 Low back pain (principal); I10 Essential (primary) hypertension
CPT/HCPCS: 96372; 99284; J1885

== ENCOUNTER 2018-08-13 13:58 | Emergency (ER) | payer OTHER ==
[~2018-08-13] VITALS: Wt 70.0 kg
[~2018-08-13 13:58] MED LIST changes: +IBUP-1542 PO
[2018-08-13] MEDS ORDERED: KETOROLAC 60 MG INJ IM STA (14:30)
[2018-08-13] MEDS ORDERED: IBUPROFEN 600 MG TAB PO ONE (15:30)
[2018-08-13] MEDS ORDERED: NAPR-985 PO (15:47)
[2018-08-13] MEDS ORDERED: MED4DP PO (15:47)
[2018-08-13] MEDS ORDERED: BUTA1CAP38 PO (15:47)
--- NOTE | 2018-08-13 16:00 | ERD ---
ER Documentation Chief Complaint Chief Complaint DYSURIA WITH LOWER BACK PAIN HPI 78-year-old female presenting with lower back pain and paresthesias to her feet. Patient is also complaining of visual changes. She states she is unsure if she needs glasses or if there is only wrong in her brain. She denies any vomiting. Denies any fevers. Has not used medications for her symptoms. Denies other medical problems. Denies changes in urination or bowel movement. Denies abdominal pain. Denies recent falls or injuries. ROS All systems reviewed and are negative except as per history of present illness. Medications Home Meds Active Scripts Uyrqvxxcit-Pvzzlnqsbffjw-Cylomtvh* (Fioricet*) 50-300-40 Mg Capsule, 1 CAP PO Q4H PRN for HEADACHE, #30 CAP Prov:ANN-MARIE ARGUETA PA-C 08/13/18 Methylprednisolone* (Medrol* DOSE PACK) 4 Mg/Dose-Pack Tab.ds.pk, 4 MG PO . DIRECTED, #1 PACKET Prov:ANN-MARIE ARGUETA PA-C 08/13/18 Naproxen* (Naprosyn*) 500 Mg Tablet, 500 MG PO BID PRN for PAIN AND/OR INFLAMMATION, #30 TAB Prov:ANN-MARIE ARGUETA PA-C 08/13/18 Ibuprofen* (Motrin*) 600 Mg Tab, 600 MG PO Q6H PRN for PAIN AND OR ELEVATED TEMP, #30 TAB Prov:SARANYA ANAYA MD 06/18/18 Sodium Chloride (Saline Nasal [place]) 30 Ml [place], 30 ML NS BID for nasal congestion, #1 BOTTLE Prov:CHARLOTTE PARRA DO 02/22/18 D-Methorphan Hb/P-Epd HCl/Bpm (Jujbmflxaz-Cvkdqjnxxjm-El Syr) 118 Ml Syrup, 5 ML PO Q4 for congestion, #1 BOTTLE Prov:CHARLOTTE PARRA DO 02/22/18 Fluticasone Propionate (Flonase Allergy Relief) 9.9 Ml [place].susp, 1 SPRAY NASAL BID, #1 BOTTLE TO EACH NOSTRIL Prov:LEFTY BELLO PA-C 02/14/18 Loratadine* (Claritin*) 10 Mg Capsule, 10 MG PO DAILY, #30 CAP Prov:LEFTY BELLO PA-C 02/14/18 Benzonatate* (Benzonatate*) 200 Mg Capsule, 200 MG PO TID PRN for COUGH, #15 CAP Prov:LEFTY BELLO PA-C 02/14/18 Azithromycin* (Zithromax*) 250 Mg Tablet, 250 MG PO .SATISHCK DIRECTED, #6 TAB TAKE 500 MG (2 TABS) THE FIRST DAY THEN 250 MG (1 TAB) DAYS 2-5 Prov:LEFTY BELLO PA-C 02/14/18 Hydrocortisone* Topical (Hydrocortisone* Topical) 2.5%-28.3 Gm Cream..g., 1 APPLIC TOP BID for 7 Days, #1 TUB Prov:MEHDI GRACE MD 12/13/17 Guaifenesin/Pseudoephedrne HCl (Mucinex D ER 600-60 mg Tablet) 1 Each Tab.er.12h, 1 EACH PO BID for 7 Days, #14 TAB Prov:MEHDI GRACE MD 12/13/17 Ibuprofen* (Motrin*) 400 Mg Tab, 400 MG PO Q6, #15 TAB Prov:MEHDI GRACE MD 12/13/17 Acetaminophen* (Tylophen*) 500 Mg Capsule, 1 CAP PO Q6H PRN for PAIN AND OR ELEVATED TEMP, #20 CAP Prov:JEREMIAH RUANO PA-C 10/22/17 Ibuprofen* (Motrin*) 400 Mg Tab, 400 MG PO Q6, #15 TAB Prov:MEHDI GRACE MD 09/05/17 Acetaminophen* (Tylenol*) 325 Mg Tablet, 2 TAB PO Q6 PRN for PAIN AND OR ELEVATED TEMP, #20 TAB Prov:LEFTY BELLO PA-C 01/13/17 Naproxen* (Naprosyn*) 500 Mg Tablet, 500 MG PO BID PRN for PAIN AND/OR INFLAMMATION, #30 TAB Prov:PATRICIO BRAVO 09/25/16 Orphenadrine Citrate (Norflex) 100 Mg Tablet.sa, 100 MG PO BID for 7 Days, TA B.SA Prov:PATRICIO BRAVO 09/25/16 Tramadol HCl (Tramadol HCl) 50 Mg Tablet, 50 MG PO Q4 PRN for PAIN, #20 TAB Prov:PARTICIO BRAVO 09/25/16 Ondansetron (Ondansetron Odt) 4 Mg Tab.rapdis, 4 MG PO Q6H PRN for NAUSEA AND/OR VOMITING, #10 TAB Prov:CHARLOTTE MILLER MD 07/17/16 Loperamide Hcl* (Imodium*) 2 Mg Capsule, 2 MG PO .AFTER EA LOOSE BM PRN for DIARRHEA, #10 TAB Prov:CHARLOTTE MILLER MD 07/17/16 Ciprofloxacin Hcl* (Ciprofloxacin Hcl*) 500 Mg Tablet, 500 MG PO BID for 3 Days, TAB Prov:CHARLOTTE MILLER MD 07/17/16 Dicyclomine HCl (Dicyclomine HCl) 10 Mg Capsule, 10 MG PO QID PRN for abdominal cramping, #30 CAP Prov:ROD SOLOMON MD 07/15/16 Reported Medications Levothyroxine Sodium* (Levoxyl*) 50 Mcg Tablet, 50 MCG PO BEFORE BREAKFAST, #30 TAB 04/20/15 Simvastatin* (Zocor*) 20 Mg Tablet, 20 MG PO QHS, #30 TAB 04/20/15 Allergies Allergies: Coded Allergies: No Known Allergy (Unverified , 06/18/18) PMhx/Soc History of Surgery: Yes (thyroidectomy, APPY, OVARIAN SX) Anesthesia Reaction: No Hx Neurological Disorder: No Hx Respiratory Disorders: No Hx Cardiac Disorders: Yes (hypotension/hypertension) Hx Psychiatric Problems: No Hx Miscellaneous Medical Probl: No Hx Alcohol Use: Yes (socially) Hx Substance Use: No Hx Tobacco Use: No Smoking Status: Never smoker FmHx Family History: No diabetes, No coronary disease, No other Physical Exam Vitals Vital Signs Date Temp Pulse Resp B/P (MAP) Pulse Ox O2 O2 Flow FiO2 Time Delivery Rate 08/13/18 98.2 73 18 142/63 99 14:02 (89) Physical Exam GENERAL: The patient is well-appearing, well-nourished, in no acute distress HEENT: Atraumatic. Conjunctivae are pink. Pupils equal, round, and reactive to light. There is no scleral icterus. Tympanic membranes clear bilaterally. Oropharynx clear. No nystagmus or photophobia. CHEST: Clear to auscultation bilaterally. There are no rales, wheezes or rhonchi. HEART: Regular rate and rhythm. No murmurs, clicks, rubs or gallops. ABDOMEN:Soft, nontender and nondistended. Good bowel sounds. No rebound or guarding. No gross peritonitis. No gross organomegaly or masses. BACK: No midline or flank tenderness. EXTREMITIES: Equal pulses bilaterally. There is no peripheral clubbing, cyanosis or edema. No focal swelling or erythema. Full range of motion. Grossly neurovascularly intact. NEUROLOGIC: Alert and oriented. Cranial nerves II through XII intact. Motor strength in all 4 extremities with 5 out of 5 strength. Sensation grossly intact. Normal speech and gait. Results 24 hrs Laboratory Tests Test 08/13/18 15:30 Bedside Urine pH (LAB) 6.5 Bedside Urine Protein (LAB) Negative Bedside Urine Glucose (UA) Negative Bedside Urine Ketones (LAB) Negative Bedside Urine Blood Negative Bedside Urine Nitrite (LAB) Negative Bedside Urine Leukocyte Esterase (L 1+ Current Medications Medications Dose Sig/Myranda Start Time Status Last (Trade) Ordered Route PRN Stop Time Admin Dose Reason Admin Ketorolac 60 mg ONCE STAT 08/13/18 DC Tromethamine IM 14:30 (Toradol) 08/13/18 14:31 Ibuprofen 600 mg ONCE ONCE 08/13/18 DC 08/13/18 (Motrin) PO 15:30 15:26 08/13/18 15:31 Procedures/MDM DIAGNOSTIC IMAGING REPORT Patient: AURELIA YANES : 1940 Age: 78 Sex: F MR #: [id number] DOS: 08/13/18 1440 Ordering MD: DARRON ARGUETA PA-C Location: [facility] Room/Bed: PROCEDURE: CT Brain without contrast. CLINICAL INDICATION: Headache. TECHNIQUE: A CT of the brain without contrast was performed utilizing axial sections from the skull base through the vertex. One or more the following does reduction techniques were utilized: Automated exposure control, adjustment of the mA/ or kV according to patient's size, or use of iterative reconstruction technique. Total exam CTDIvol is 39 MGy and DLP is 634 mGy-cm. DICOM images are available. COMPARISON: None available. FINDINGS: The ventricles and sulci are mildly prominent indicative of volume loss. There is no intracranial hemorrhage, mass effect or midline shift. No abnormal intra- axial or extra-axial fluid collections are seen. The devine/white matter differentiation is well preserved. 6 mm calcification is noted in the inferior right frontal lobe which may represent sequela of prior infection such as neurocysticercosis or could be related to a cavernous malformation. There are mild scattered foci of hypoattenuation in the periventricular, deep, and subcortical white matter, which are nonspecific in etiology but likely reflect chronic small vessel ischemic changes. There are mild intracranial vascular calcifications consistent with atherosclerosis. Hyperostosis frontalis interna is noted. The visualized paranasal sinuses are essentially clear. IMPRESSION: 1. No acute intracranial hemorrhage, transcortical infarction or mass effect. 2. Mild intracranial atherosclerosis and chronic small vessel ischemic patric nges. 3. 6 mm calcification in the inferior right frontal lobe which may represent sequela of prior neurocysticercosis or could be related to a cavernous malformation. 4. Mild generalized cerebral volume loss. DIAGNOSTIC IMAGING REPORT Patient: AURELIA YANES : 1940 Age: 78 Sex: F MR #: [id number] DOS: 08/13/18 1433 Ordering MD: DARRON ARGUETA PA-C Location: [facility] Room/Bed: PROCEDURE: XR Lumbar Spine. CLINICAL INDICATION: Back pain. TECHNIQUE: Lumbar spine x-rays, 3 views. COMPARISON: CT lumbar spine 01/13/2017. FINDINGS: Mild spinal curvature is observed. Vertebral body heights are normal. Moderate severe intervertebral disc narrowing with endplate sclerosis and osteophyte formation is observed at L1-L2 and L2-L3. Similar degenerative changes are observed at L4-L5. Osteophytes are scattered throughout the anterior aspect of the lumbar spine. Facet degenerative changes of the lower lumbar spine are observed. Abdominal aortic atherosclerotic calcification is present. IMPRESSION: Spinal curvature with moderate severe multilevel degenerative disc disease, grossly unchanged since 2017. MDM: 78-year-old female presenting with leg pain. I have low suspicion for cauda equina, discitis or epidural abscess. I have low suspicion for neuro deficit. I have low suspicion for findings consistent with stroke. She is discharged with strict ER precautions and told to follow-up with primary care within 1 to 2 days for close evaluation. Patient is told symptoms change or worsen to return immediately to the ER. All questions answered at discharge. Departure Diagnosis: Primary Impression: Distal paresthesia Additional Impression: Back pain Condition: Stable Patient Instructions: Back Pain (Acute Or Chronic), Paraesthesias Referrals: [facility] YOU HAVE RECEIVED A MEDICAL SCREENING EXAM AND THE RESULTS INDICATE THAT YOU DO NOT HAVE A CONDITION THAT REQUIRES URGENT TREATMENT IN THE EMERGENCY DEPARTMENT. FURTHER EVALUATION AND TREATMENT OF YOUR CONDITION CAN WAIT UNTIL YOU ARE SEEN IN YOUR DOCTORS OFFICE WITHIN THE NEXT 1-2 DAYS. IT IS YOUR RESPONSIBILITY TO MAKE AN APPOINTMENT FOR FOLOW-UP CARE. IF YOU HAVE A PRIMARY DOCTOR --you should call your primary doctor and schedule an appointment IF YOU DO NOT HAVE A PRIMARY DOCTOR YOU CAN CALL OUR PHYSICIAN REFERRAL HOTLINE AT IF YOU CAN NOT AFFORD TO SEE A PHYSICIAN YOU CAN CHOSE FROM THE FOLLOWING [facility] [address] [facility] [address] [facility] [facility] [address] [facility] [facility] [address] [facility] [facility] [address] [facility] [facility] [facility]. [facility]. [address] Additional Instructions: FOLLOW UP WITH YOUR PRIMARY CARE PHYSICIAN TOMORROW.Return to this facility if you are not improving as expected. ANN-MARIE ARGUETA PA-C August 13, 2018 16:00
[2018-08-13 16:01] VITALS: BP 138/70; PULSE 71; RESP 16
== END 2018-08-13 16:02 | disposition home or self-care (01) ==
LOC: FTE 13:58
DX: M54.5 Low back pain (principal); R20.2 Paresthesia of skin; R51 Headache; I10 Essential (primary) hypertension
CPT/HCPCS: 70450; 72100; 81003; 87086